=== PATIENT | male | born 1970 | race Caucasian/White ===

== ENCOUNTER → 2017-02-05 | Outpatient (CLI) | payer BC ==
[2017-02-05 06:48] LABS: HEMOGLOBIN 15.1 gm/dl (14.0-17.5); RED BLOOD COUNT 5.13 M/UL (4.20-5.50); WHITE BLOOD COUNT 5.2 K/UL (4.5-11.0)
[2017-02-05 07:21] LABS: BUN/CREATININE RATIO 18 (0-10)
== END ==
LOC: LAB 06:22
PROVIDERS: Internal Medicine
DX: Z00.00 Encounter for general adult medical examination without abnormal findings (principal); E55.9 Vitamin D deficiency, unspecified; E78.5 Hyperlipidemia, unspecified
CPT/HCPCS: 36415; 80048; 80061; 80076; 84153; 84443; 85025

== ENCOUNTER → 2020-09-28 | Day surgery (SDC) | payer BC, OTHER ==
[~2020-09-28] MED LIST: 24HR ALLERGY REL5 MG PO; BENICAR40 MG PO; CALCIUM500 MG PO; CYCLOBENZAPRINE10 MG PO; CYMBALTA60 MG PO; FLAGYL375 MG PO; FOLIC ACID 1 MG1 MG PO; GRALISE300 MG PO; HYDROCODON-ACE1 EAC2 PO; METHOTREXATE T2.5 MG PO; NAPROSYN500 MG PO; NORCO 5-325 TA1 EACH PO; OZEMPIC1 MG/0.75 SQ; PLAQUENIL 200200 MG PO; PROTONIX 40 MG40 M1 PO; ROXICODONE TAB 55 MG PO; SYNTHROID25 MCG PO; VITAMIN D PO; XIGDUO XR 10 M1 EACH PO; ZOFRAN4 MG PO
[2020-09-28 14:20] LABS: BUN/CREATININE RATIO 9 (0-10)
== END | disposition home or self-care (01) ==
LOC: OR 09-27 19:00
PROVIDERS: Internal Medicine Gastroenterology
PROC: 0DBN8ZX Excision of Sigmoid Colon, Via Natural or Artificial Opening Endoscopic, Diagnostic (ICD-10-PCS; 2020-09-28)
PROC: 0DB98ZX Excision of Duodenum, Via Natural or Artificial Opening Endoscopic, Diagnostic (ICD-10-PCS; principal; 2020-09-28 13:00)
PROC: 0DB78ZX Excision of Stomach, Pylorus, Via Natural or Artificial Opening Endoscopic, Diagnostic (ICD-10-PCS; 2020-09-28 13:00)
DX: K21.9 Gastro-esophageal reflux disease without esophagitis (principal); K29.50 Unspecified chronic gastritis without bleeding; K31.89 Other diseases of stomach and duodenum; K64.0 First degree hemorrhoids; K63.3 Ulcer of intestine; D12.5 Benign neoplasm of sigmoid colon; I10 Essential (primary) hypertension; M32.9 Systemic lupus erythematosus, unspecified; E11.9 Type 2 diabetes mellitus without complications; E66.01 Morbid (severe) obesity due to excess calories; Z68.41 Body mass index [BMI] 40.0-44.9, adult; Z87.891 Personal history of nicotine dependence; Z88.0 Allergy status to penicillin; Z88.5 Allergy status to narcotic agent; Z79.899 Other long term (current) drug therapy; Z20.822 Contact with and (suspected) exposure to COVID-19
CPT/HCPCS: 80048; J2250; J2405; J2704; J3010; J7040

== ENCOUNTER → 2020-10-01 | Outpatient (CLI) | payer BC, OTHER | LOC: CT 09-28 14:00 | DX: K65.1 Peritoneal abscess (principal); K76.0 Fatty (change of) liver, not elsewhere classified | CPT/HCPCS: Q9967 ==

== ENCOUNTER → 2020-10-09 | Day surgery (SDC) | payer BC, OTHER | END | disposition home or self-care (01) | LOC: OR 05:59 | DX: K36 Other appendicitis (principal); R19.7 Diarrhea, unspecified; E11.9 Type 2 diabetes mellitus without complications; I10 Essential (primary) hypertension; I49.3 Ventricular premature depolarization; I47.1 Supraventricular tachycardia; G57.11 Meralgia paresthetica, right lower limb; G71.00 Muscular dystrophy, unspecified; G89.29 Other chronic pain; M32.9 Systemic lupus erythematosus, unspecified; F41.9 Anxiety disorder, unspecified; K21.9 Gastro-esophageal reflux disease without esophagitis; E78.5 Hyperlipidemia, unspecified; E03.9 Hypothyroidism, unspecified; R79.82 Elevated C-reactive protein (CRP); E55.9 Vitamin D deficiency, unspecified; J30.9 Allergic rhinitis, unspecified; F17.290 Nicotine dependence, other tobacco product, uncomplicated; E66.01 Morbid (severe) obesity due to excess calories; Z68.41 Body mass index [BMI] 40.0-44.9, adult; Z79.4 Long term (current) use of insulin; Z79.899 Other long term (current) drug therapy; Z88.1 Allergy status to other antibiotic agents; Z88.6 Allergy status to analgesic agent | CPT/HCPCS: J2001; J2250; J2704; J2710; J3010; J7030; J7120 ==

== ENCOUNTER → 2020-12-14 | Outpatient (CLI) | payer BC, OTHER ==
[2020-12-14 05:08] LABS: RED BLOOD COUNT 4.81 M/UL (4.20-5.50); WHITE BLOOD COUNT 5.3 K/UL (4.5-11.0)
[2020-12-14 05:33] LABS: BUN/CREATININE RATIO 14 (0-10)
== END ==
LOC: LAB 04:48
PROVIDERS: Internal Medicine
DX: E11.9 Type 2 diabetes mellitus without complications (principal); E03.9 Hypothyroidism, unspecified; E55.9 Vitamin D deficiency, unspecified; E78.5 Hyperlipidemia, unspecified; I10 Essential (primary) hypertension
CPT/HCPCS: 80048; 80061; 80076; 83036; 84439; 84443; 85025

== ENCOUNTER 2021-01-07 10:50 | Emergency (ER) | payer BC, OTHER ==
[2021-01-07 11:23] LABS: HEMOGLOBIN 13.9 gm/dl (14.0-17.5); RED BLOOD COUNT 4.73 M/UL (4.20-5.50); WHITE BLOOD COUNT 7.2 K/UL (4.5-11.0)
[2021-01-07 11:51] LABS: BUN/CREATININE RATIO 10 (0-10)
== END 2021-01-07 14:30 | disposition home or self-care (01) ==
LOC: ER1 10:50
PROVIDERS: Emergency Medicine
DX: R07.9 Chest pain, unspecified (principal); R06.02 Shortness of breath; R68.84 Jaw pain; I10 Essential (primary) hypertension; E11.9 Type 2 diabetes mellitus without complications; Z20.822 Contact with and (suspected) exposure to COVID-19
CPT/HCPCS: 0240U; 70450; 71045; 80053; 81001; 82550; 82553; 83605; 83690; 84484; 85025; 85379; 85610; 85730; 93005; 96374; 99285; J2405

== ENCOUNTER → 2021-03-14 | Outpatient (CLI) | payer OTHER, BC ==
[~2021-03-14] MED LIST changes: +CLINDAMYCIN TOP; +FOLIC ACID1 MG PO; +IBU800 MG PO; +LEVOTHYROXINE25 MC1 PO; +LIDOCAINE MT; +LO-DOSE ASPIRIN81 MG PO; +NEURONTIN100 MG PO; +PLAQUENIL200 MG PO; +PROTONIX40 MG PO; +RYBELSUS7 MG PO; +TESTOSTERO200 MG/1 M INJ; +VITAMIN D21250 MCG PO; +XYZAL5 MG PO
== END ==
LOC: KOH-I 14:33
DX: M25.562 Pain in left knee (principal)
CPT/HCPCS: 73564

== ENCOUNTER → 2021-05-07 | Day surgery (SDC) | payer OTHER, BC ==
[~2021-05-07] VITALS: Ht 180.3 cm; Wt 140.2 kg
[2021-05-07 06:31] LABS: HEMOGLOBIN 15.8 gm/dl (14.0-17.5); RED BLOOD COUNT 5.19 M/UL (4.20-5.50); WHITE BLOOD COUNT 7.7 K/UL (4.5-11.0)
[2021-05-07 06:49] LABS: BUN/CREATININE RATIO 9 (0-10)
== END | disposition home or self-care (01) ==
LOC: OR 05:03
PROVIDERS: Orthopaedic Surgery
DX: S83.232A Complex tear of medial meniscus, current injury, left knee, initial encounter (principal); S83.242A Other tear of medial meniscus, current injury, left knee, initial encounter; M94.262 Chondromalacia, left knee; M17.12 Unilateral primary osteoarthritis, left knee; I10 Essential (primary) hypertension; E11.9 Type 2 diabetes mellitus without complications; M32.9 Systemic lupus erythematosus, unspecified; E07.9 Disorder of thyroid, unspecified; Z79.899 Other long term (current) drug therapy; Z88.0 Allergy status to penicillin; Z88.5 Allergy status to narcotic agent; Z20.822 Contact with and (suspected) exposure to COVID-19; Z90.49 Acquired absence of other specified parts of digestive tract
CPT/HCPCS: 80048; 85025; 93005; J0171; J0690; J1100; J1170; J2001; J2250; J2405; J2704; J3010; J7120

== ENCOUNTER → 2021-07-04 | Outpatient (CLI) | payer BC ==
[2021-07-04 04:25] LABS: HEMOGLOBIN 14.4 gm/dl (14.0-17.5); RED BLOOD COUNT 5.61 M/UL (4.20-5.50); WHITE BLOOD COUNT 5.3 K/UL (4.5-11.0)
[2021-07-04 04:44] LABS: BUN/CREATININE RATIO 10 (0-10)
== END ==
LOC: LAB 04:03
PROVIDERS: Internal Medicine
DX: E11.9 Type 2 diabetes mellitus without complications (principal)
CPT/HCPCS: 80048; 80061; 80076; 83036; 84443; 85025

== ENCOUNTER → 2021-08-05 | Outpatient (CLI) | payer BC ==
[2021-08-05 05:09] LABS: BUN/CREATININE RATIO 9 (0-10)
[2021-08-06 13:13] LABS: COMPLEMENT C3, SERUM 148 mg/dL (82-167); COMPLEMENT C4, SERUM 21 mg/dL (12-38)
[2021-08-07 14:14] LABS: DSDNA CRITHIDIA LUCILIAE IFA Negative (Negative)
== END ==
LOC: LAB 03:49
PROVIDERS: Internal Medicine
DX: M32.9 Systemic lupus erythematosus, unspecified (principal); M06.09 Rheumatoid arthritis without rheumatoid factor, multiple sites
CPT/HCPCS: 80053; 82570; 84156; 86140; 86160; 86162; 86255

== ENCOUNTER → 2021-08-05 | Outpatient (CLI) | payer BC | LOC: DTC 13:19 | DX: Z71.3 Dietary counseling and surveillance (principal); E11.65 Type 2 diabetes mellitus with hyperglycemia; I10 Essential (primary) hypertension; E66.3 Overweight | CPT/HCPCS: G0108 ==

== ENCOUNTER → 2022-01-29 | Outpatient (CLI) | payer BC ==
[2022-01-29 05:59] LABS: RED BLOOD COUNT 6.01 M/UL (4.20-5.50); WHITE BLOOD COUNT 6.4 K/UL (4.5-11.0)
[2022-01-29 06:59] LABS: BUN/CREATININE RATIO 19 (0-10)
[2022-01-30 08:17] LABS: COMPLEMENT C3, SERUM 144 mg/dL (82-167); COMPLEMENT C4, SERUM 18 mg/dL (12-38); THYROXINE (T4) 6.1 ug/dL (4.5-12.0); VITAMIN D, 25-HYDROXY 43.9 ng/mL (30.0-100.0)
== END ==
LOC: LAB 05:35
PROVIDERS: Internal Medicine
DX: E03.9 Hypothyroidism, unspecified (principal); E11.65 Type 2 diabetes mellitus with hyperglycemia; E55.9 Vitamin D deficiency, unspecified; E78.5 Hyperlipidemia, unspecified; I10 Essential (primary) hypertension; D51.9 Vitamin B12 deficiency anemia, unspecified; M32.10 Systemic lupus erythematosus, organ or system involvement unspecified; M79.642 Pain in left hand; R53.83 Other fatigue; Z68.41 Body mass index [BMI] 40.0-44.9, adult
CPT/HCPCS: 36415; 80048; 80061; 80076; 81001; 82550; 82552; 82607; 82728; 83036; 83520; 83615; 83625; 84436; 84439; 84443; 85025; 85652; 86140; 86160

== ENCOUNTER → 2022-03-26 | Outpatient (CLI) | payer BC ==
[~2022-03-26] MED LIST changes: +ANASTROZOLE1 MG PO; +CIALIS5 MG PO; +CLINDAMYCIN PHO60 M1 TOP; +LANTUS SOL100 UNIT/1 SQ; +LEVOTHYROXINE50 MC1 PO; +MEN'S MULTIVIT1 EACH PO; +MINOCYCLINE HC100 MG PO; +RYBELSUS14 MG PO
[2022-03-26 09:54] LABS: HEMOGLOBIN 14.6 gm/dl (14.0-17.5); RED BLOOD COUNT 5.77 M/UL (4.20-5.50); WHITE BLOOD COUNT 6.2 K/UL (4.5-11.0)
[2022-03-26 10:19] LABS: BUN/CREATININE RATIO 13 (0-10)
== END ==
LOC: OPSV2 09:00
PROVIDERS: Podiatrist Foot & Ankle Surgery
DX: Z01.818 Encounter for other preprocedural examination (principal)
CPT/HCPCS: 80048; 85025; 93005

== ENCOUNTER → 2022-04-21 | Outpatient (CLI) | payer BC | LOC: RAD 10:20 | DX: M47.26 Other spondylosis with radiculopathy, lumbar region (principal) | CPT/HCPCS: 72100 ==

== ENCOUNTER → 2022-05-28 | Outpatient (CLI) | payer BC | LOC: MRI 09:30 → KOH-I 06-09 09:30 | DX: M51.16 Intervertebral disc disorders with radiculopathy, lumbar region (principal); R29.898 Other symptoms and signs involving the musculoskeletal system | CPT/HCPCS: 72148 ==